=== PATIENT | male | born 1955 | race Caucasian/White ===

== ENCOUNTER → 2016-05-23 | Outpatient (CLI) | payer MEDICARE ==
[~2016-05-23] MED LIST: AUGMENTIN 875-1 EACH PO; COREG25 MG PO; COUMADIN ** IA3 MG PO; DELTASONE50 MG PO; DESYREL100 MG PO; DOXYCYCLINE100 MG PO; FLORASTOR250 MG PO; KLOR-CON M2020 MEQ PO; LASIX40 MG PO; LISINOPRIL-HCT1 EAC1 PO; NEURONTIN300 MG PO; NORCO 10-325 T1 EACH PO; RANEXA1000 MG PO; REGLAN10 MG PO; ZANTAC (NON-FO150 MG PO; ZYLOPRIM100 MG PO
[2016-05-23 15:20] LABS: INR - (THERAPEUTIC) 1.28 (0.92-1.07); PROTIME 13.5 SECONDS (9.8-11.4)
--- NOTE | 2016-08-25 10:30 | NUR ---
Notified this a.m. orders for transfer have been written. Faxed orders to [facility]. Nurse will call nurse to nurse report. From Tonya's notes anticipated [facility] would be here around 1000 to transport patient. Called and spoke with Blanquita at [facility] and she says they had left messages for Tonya. 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 She needs [facility] faxed and they have questions on medication orders. Talked to their nurse and got their questions. Called and talked to Dr. Osborn and orders received and faxed to [facility] along with [facility] screen. Patient to transfer to [facility] today via [facility] for skilled care.
== END | disposition disaster alternative care site (69) ==
LOC: GLAB 14:29
PROVIDERS: Family Medicine
DX: I48.91 Unspecified atrial fibrillation (principal)

== ENCOUNTER → 2016-09-13 | Outpatient (CLI) | payer MEDICARE ==
[2016-09-13 14:45] LABS: INR - (THERAPEUTIC) 1.93 (0.92-1.07); PROTIME 20.4 SECONDS (9.8-11.4)
== END | disposition disaster alternative care site (69) ==
LOC: GLAB 14:16
PROVIDERS: Family Medicine
DX: I48.91 Unspecified atrial fibrillation (principal)